=== PATIENT | male | born 1990 | race Caucasian/White ===

== ENCOUNTER 2023-06-05 17:19 | Emergency (ER) | payer OTHER, SELFPAY ==
[2023-06-05 17:30] VITALS: BP 141/87
[2023-06-05 18:18] LABS: % Basophils 0.7 % (0-2); % Eosinophils 1.3 % (0-6); % Immature Granulocytes 0.3 % (0-0.5); % Lymphocytes 27.8 % (20.5-51.1); % Monocytes 6.4 % (1.7-9.3); % Neutrophils 63.5 % (42.2-75.2); Absolute Basophils 0.1 10^3/uL (0-0.2); Absolute Eosinophils 0.1 10^3/uL (0-0.7); Absolute Lymphocytes 2.6 10^3/uL (1.2-3.4); Absolute Monocytes 0.6 10^3/uL (0.1-0.6); Absolute Neutrophils 5.9 10^3/uL (1.4-6.5); Hematocrit 38.7 % (39.0-52.0); Mean Corp Hgb Conc. 36.2 g/dL (33.0-37.0); Mean Corpuscular Hgb 30.3 pg (27.0-31.0); Mean Corpuscular Volume 83.8 fL (80.0-94.0); Mean Platelet Volume 11.3 fL (7.4-10.4); Nucleated Red Blood Cells % 0 % (-); Platelet Count 244 10^3/uL (130-400); Red Blood Cell Count 4.62 10^6/uL (4.70-6.10); Red Cell Dist. Width 13.2 % (11.5-14.5); White Blood Cell Count 9.2 10^3/uL (4.8-10.8)
[2023-06-05 18:42] LABS: ALT (SGPT) 32 U/L (0-50); AST (SGOT) 42 U/L (17-59); Albumin 4.6 g/dl (3.5-5.0); Alkaline Phosphatase 59 U/L (38-126); Blood Urea Nitrogen 17 mg/dl (9-20); Calcium 9.6 mg/dl (8.4-10.2); Carbon Dioxide 25 mmol/L (22-30); Chloride 102 mmol/L (98-107); Glucose 103 mg/dl (70-99); Potassium 3.9 mmol/L (3.5-5.1); Sodium 138 mmol/L (135-145); Total Bilirubin 0.6 mg/dl (0.2-1.3); eGFR > 60.00
--- NOTE | 2023-06-05 18:46 | ED.GENMED ---
History of Present Illness
General
Chief Complaint: Chest Problem
Source: patient
Exam Limitations: none
Time Seen by Provider: 06/05/23 18:45
Nursing documentation reviewed up to this point in time: agreed with
Travel History
Have you had any contact with someone who has COVID-19?: No
Do you have any symptoms of coronavirus? Fever > 100 degrees, chills, cough, shortness of breath, sore throat, loss of taste or smell, muscle aches, or headache?: No
History of Present Illness
History of Present Illness:
pt is a 33 y/o M with no chronic medical problems
here with R sided chest pain since around 430 pm today when he was sitting watching tv
pt says he had played basketball for 2 hours this morning and had no issues
he ate a smoothie as usual for lunch, nothing out of the ordinary
then he started feeling a subtle pressure in his right chest in a small location that seemed to progress from 3/10 dull ache to 5-6/10 where it is currently
he also feels it in his back
no pleuritic component, no sob, no fever, no vomiting, no nausea, no alcohol
he has not had any abodminal pain
no fhx of premature cad
nonsmoker
nothing taken for sypmtoms
sypmtoms are nonexertional and not worse with mvement of his chest wall/trunk or arm
Past History
Past History
ED Past Medical History: Other (Psoriatic arthritis on Humira)
ED Past Surgical History: None
Social History
Tobacco: Non-smoker
Alcohol: None
Family History
Family History: Negative Diabetes, Hypertension or CAD
Review of Systems
Review of Systems
Allergies reviewed?: Yes
All Other Systems: Not applicable
Phy Exam
Physical Exam
Physical Exam:
GENERAL: Alert , in no apparent distress
EYE: pupils equal and reactive
NECK: Supple
ENT: o/p clr, mmm.
CARDIAC: Regular rate and rhythm .
chest wall: slightly tender in 1 spot in between ribs on the right in the mid clavicular line
no rash
LUNGS: Clear breath sounds bilaterally, no acute respiratory distress, no wheezes/rales/rhonchi
ABDOMEN: Soft, without focal tenderness, no r/g, no cvat, normal bowel sounds
NEUROLOGICAL: Alert and oriented, no focal neuro deficits
SKIN: Warm and dry, skin intact.
MUSCULOSKELETAL: No edema, well perfused. neg agustina's sign
PSYCH: Normal and appropriate interaction.
Course
Orders/Labs/Results
Orders:
Orders
06/05/23 17:21
EKG [Electrocardiogram (*1)] Stat
Reason for Study: Chest Pain
EKG- Treatment ONCE
06/05/23 18:09
Cardiac Monitoring- Treatment ONCE
IV Insert/Care/Rem.- Treatment PRN
O2 Therapy [RESP] Urgent
Titrate/Wean O2 to maintain O2 sat greater than (%): 90
Special Instructions: Maintain sats >/=90%
Pulse Ox/spot Check [RESP] Urgent
Quantity: 1
Special Instructions: ON ROOM AIR
06/05/23 18:10
Complete Blood Count/With Diff Urgent
Comprehensive Metabolic Panel Urgent
Lipase Urgent
Comment: ADD ON
Troponin I Urgent
06/05/23 19:15
Add On- LAB Urgent
Tests Added?: lipase
Ketorolac [Toradol] 30 mg IV NOW STA
06/05/23 19:24
D-Dimer Urgent
06/05/23 19:58
CR Chest - 2 Views Urgent
Comment:
Reason For Exam: right sided chest pain
06/05/23 21:30
Electrocardiogram (*1) Urgent
Reason for Study: Chest Pain
06/05/23 21:35
Troponin I Urgent
Abnormal Lab Results
06/05/23
18:10
RBC 4.62 L 10^6/uL
(4.70-6.10)
Hct 38.7 L %
(39.0-52.0)
MPV 11.3 H fL
(7.4-10.4)
Glucose 103 H mg/dl
(70-99)
06/05/23 18:10
06/05/23 18:10
Vital Signs
Initial and Last Documented VS:
Initial Vital Signs
Temp Pulse Resp BP Pulse Ox
98.0 F 75 16 141/87 98
06/05/23 17:30 06/05/23 17:30 06/05/23 17:30 06/05/23 17:30 06/05/23 17:30
Last Documented Vital Signs
Temp Pulse Resp BP Pulse Ox
98.0 F 64 23 132/81 97
06/05/23 17:30 06/05/23 22:30 06/05/23 22:30 06/05/23 22:00 06/05/23 21:30
MDM/Problems Addressed
Differential Diagnosis Includes:
acs, pe, chest wall pain, anxieyt, gerd
MDM/Problems Addressed:
33 y.o M healthy no pmh
here with right sided chest pain that felt like a somewhat achy but sometimes sharp pain today suddenly while watching tv
pt had done a few hours of basketball exercise in the morning bu tdidn't recall injury
there is one spot where if he pushes it, he can reproduce th pain
it feels the same way in his back as well but doesn't rip through to the back
he felt a little lightheaded after this pain began.
he has never had anythign like it
denies nausea, vomiting, diarrhea, rash, fever, painfulb reathing, shortness of breath,
mom had LA > 65
nonsmoker
he has not tried anthing for symptoms
on exam pt had reproducible tenderness to papation between ribs 3/4 region in the mid clavicular line in the right chest
no rash
full rom of chest wall and deep breathing
no tachycardia
no significant hypertension
no radiatin of pain
not exertional
pt seems anxious
turns out a friend of his sisters had cardiac at ag 34
he has 2 nonishcemic ekgs, 2 neg trop, neg d dimer, normal lfts, cxr with narrow mediatstinum and no right sided abnormalities
toradol did not improve his pain much if at all still 07/28
pt recommended to f/u with pcp and cards for persistent sypmtos
d/w dr. donnelly, agreed on discharge for this ptaient at this time.
*Critical Care Note
Total Time (30-74mins, 75-104mins- exclusive of procedures): Not Applicable
ED Attending Note
-
Portions of this chart may have been created with voice recognition software.� Occasional wrong word or��sound alike� substitutions may have occurred due to the inherent limitations of voice recognition software.
Discharge Plan
Departure
Patient Disposition: Home (Routine Discharge)
Date of Disposition: 06/05/23
Time of Disposition: 22:27
Patient with high blood pressure during this ER visit?: No
Condition: Fair
Covid-19: Not Applicable
Discharge Problem:
Chest pain of uncertain etiology
Instructions: Chest Pain PCP Follow Up
Prescriptions:
No Action
albuterol sulfate [ProAir HFA] 90 mcg/actuation Hfa Aerosol Inhaler
1 puff INHALATION Q4HPRN PRN (Reason: shortness of breath) Qty: 8.5 0RF
prednisone 50 mg Tablet
50 mg PO DAILY Qty: 5 0RF
Referrals:
Teresa Dallas MD [Family Provider] - Follow up in 2-3 days
Activity Restrictions/Additional Instructions:
WE ARE NOT SURE THE CAUSE OF YOUR CHEST PAIN
YOU HAD 2 NEGATIVE TROPONIN ENZYMES AND 2 NORMAL EKGS
YOU HAD A NEGATIVE D DIMER RULING OUT A BLOOD CLOT
YOU HAD A NORMAL APPEARING CHEST XRAY
YOU MAY HAVE SOME INFLAMMATION IN THE CHEST WALL, MUSCLES, NERVES, CARTILAGE ETC
TRY MOTRIN 800 MG 2-3 TIMES A DAY WITH FOOD FOR 3 DAYS TO HELP
AVOID HEAVY LIFTING AND PLAYING BASKETBALL/SPORTS AND THE GYM FO RA FEW DAYS
FOLLOW UP WITH YOUR DOCTOR THIS WEEK
RETURN FOR: WORSENING PAIN, PASSING OUT, RASH, VOMITING, FEVER, SHORTNESS OF BREATH OR ANY CONCERNS.
Interventions
Interventions:
*Risk Screen - Suicide Last Done: 06/05/23 19:32
*General Assessment Last Done: 06/05/23 19:32
*Neglect/Abuse Screening Last Done: 06/05/23 19:32
ED- Fall Risk Assessment Last Done: 06/05/23 19:31
*ED COVID-19 Vaccine History Last Done: 06/05/23 17:30
*Nursing Disposition Last Done: 06/05/23 22:38
ED- Cardiac Assessment Last Done: 06/05/23 18:43
ED- Pulmonary Assessment Last Done: 06/05/23 19:31
Discharge Date and Time
Discharge Date/Time: 06/05/23 22:39
[2023-06-05 18:55] LABS: Troponin I < 0.012 ng/ml
[2023-06-05 19:02] VITALS: BP 148/73
[2023-06-05] MEDS: TORADOL 30 MG IV (19:22)
[2023-06-05 19:46] LABS: D-Dimer < 0.27 ug/mlFEU (0.00-0.50)
[2023-06-05 20:00] VITALS: BP 143/80
[2023-06-05 20:14] LABS: Lipase 63 U/L (23-300)
[2023-06-05 21:05] VITALS: BP 136/86
[2023-06-05 22:00] VITALS: BP 132/81
[2023-06-05 22:15] LABS: Troponin I < 0.012 ng/ml
== END 2023-06-05 22:39 | disposition home or self-care (01) ==
LOC: EMR 17:19
PROVIDERS: Emergency Medicine; Physician Assistant; EMERGENCY PHYSICIAN Emergency Medicine; FAMILY PHYSICIAN Internal Medicine
DX: R07.89 Other chest pain (principal); R42 Dizziness and giddiness; L40.50 Arthropathic psoriasis, unspecified
CPT/HCPCS: 99285; 96374; 94760; 71046; 80053; 83690; 84484; 85025; 85379; 93005

== ENCOUNTER 2024-03-30 21:48 | Day surgery (SDC) | payer OTHER, SELFPAY ==
[2024-03-30 12:48] VITALS: BMI 31.0
[2024-03-30 12:50] VITALS: BP 134/81
--- NOTE | 2024-03-30 12:55 | ED.GENMED ---
ED Provider Triage
<Eder Higgins PA-C - Last Filed: 03/30/24 13:00>
-
Patient seen by provider in Triage?: Seen in Triage
33-year-old male presents with progressively worsening right lower quadrant abdominal pain starting about a day and a half ago. He notes loose stool but no nausea or vomiting. The pain is made worse with walking and bumps on the road. Does not
radiate to the flank. No urinary symptoms. No chest pain or shortness of breath
Vital signs are stable through triage but does appear quite uncomfortable. CBC CMP urinalysis ordered. Will order CT scan with IV contrast. Differential could include appendicitis versus renal colic versus constipation versus colitis. No family
history or personal history of inflammatory bowel disease. IV started at triage. Toradol given at triage
Seen by healthcare provider at triage but warrants further assessment
History of Present Illness
<Eder Higgins PA-C - Last Filed: 03/30/24 13:00>
General
Chief Complaint: Abdominal Pain
Time Seen by Provider: 03/30/24 15:25
<Leslye Preciado NP - Last Filed: 03/30/24 20:41>
General
Source: patient
Exam Limitations: none
Nursing documentation reviewed up to this point in time: agreed with
History of Present Illness
History of Present Illness:
Patient to ED with complaint of worsening RLQ abd pain. Pain started 1.5 days ago, periumbilical. Migrated to RLQ. Denies fever/chills. +nausea, no vomiting or diarrhea. Last BM was this AM, reports small at of stool. No prior hisstory of
same. Brought self to ED for eval
Past History
<dEer Higgins PA-C - Last Filed: 03/30/24 13:00>
Past History
ED Past Medical History: Other (Psoriatic arthritis on Humira)
ED Past Surgical History: None
Social History
Tobacco: Non-smoker
Alcohol: None
Family History
Family History: Negative Diabetes, Hypertension or CAD
Review of Systems
<Leslye Preciado NP - Last Filed: 03/30/24 20:41>
Review of Systems
Allergies reviewed?: Yes
All Other Systems: ROS reviewed and negative except as documented in HPI and ROS
Constitutional: Reports no symptoms
EENT: Reports no symptoms
Respiratory: Reports no symptoms
Cardiac: Reports no symptoms
ABD/GI: Reports abdominal pain (RLQ) and nausea
: Reports no symptoms
Musculoskeletal: Reports no symptoms
Skin: Reports no symptoms
Neurological: Reports no symptoms
Psychiatric: Reports no symptoms
Phy Exam
<Leslye Preciado NP - Last Filed: 03/30/24 20:41>
General Physical Exam
General Presentation: moderate distress
General age: appears stated age
General Skin: warm and dry
General Habitus: normal
General Mental: alert
General Hydration: appears well hydrated
Cardiovascular Exam
Cardiovascular Exam: regular rate/rhythm and no edema
Gastrointestinal Exam
Gastrointestinal Exam: normal bowel sounds, no organomegaly, no pulsatile mass, non distended and guarding
Palpation: left upper quadrant: No tenderness, left lower quadrant: No tenderness, right upper quadrant: Mild tenderness and right lower quadrant: Moderate tenderness
Musculoskeletal Exam
Musculoskeletal Exam: full ROM and neuro vasc intact
Skin Exam
Skin Exam: normal color, warm/dry and no rash
Psychiatric Exam
Psychiatric Exam: normal mood/affect
Course
<Eder Higgins PA-C - Last Filed: 03/30/24 13:00>
Orders/Labs/Results
Orders:
Orders
03/30/24 12:53
CT Abd/pelvis W Iv Cont Urgent
Comment:
Reason For Exam: rlq pain
03/30/24 13:00
Ketorolac [Toradol] 15 mg IV NOW STA
03/30/24 13:04
Complete Blood Count/With Diff Urgent
Comprehensive Metabolic Panel Urgent
Urinalysis Reflex To Culture Urgent
Date Specimen was Collected: 03/30/24
Time Specimen was Collected: 12:56
03/30/24 15:32
CT Abd/pel W Iv And Oral Contr Urgent
Comment:
Reason For Exam: RLQ pain.
Iohexol [Omnipaque] See Protocol PO NOW STA
03/30/24 15:40
0.9% Sodium Chloride 1000 ml [Nss] 1,000 ml IV BOLUS
03/30/24 17:40
Ketorolac [Toradol] 15 mg .ROUTE .STK-MED ONE
03/30/24 18:09
Ketorolac [Toradol] 15 mg IV NOW STA
03/30/24 20:26
HYDROmorphone [Dilaudid] 0.5 mg IV NOW STA
Ondansetron Injectable [Zofran] 4 mg IV NOW STA
03/30/24 20:30
0.9% Sodium Chloride 1000 ml [Nss] 1,000 ml IV 125 mls/hr
Piperacillin/Tazo 3.375 Gram [Zosyn] 3.375 gram in 50 ml IV NOW
Abnormal Lab Results
03/30/24
13:04
MPV 11.1 H fL
(7.4-10.4)
Absolute Monos (auto) 0.7 H 10^3/uL
(0.1-0.6)
Total Bilirubin 1.4 H mg/dl
(0.2-1.3)
Albumin 5.2 H g/dl
(3.5-5.0)
03/30/24 13:04
03/30/24 13:04
Vital Signs
Initial and Last Documented VS:
Initial Vital Signs
Temp Pulse Resp BP Pulse Ox
97.9 F 88 18 134/81 100
03/30/24 12:50 03/30/24 12:50 03/30/24 12:50 03/30/24 12:50 03/30/24 12:50
Last Documented Vital Signs
Temp Pulse Resp BP Pulse Ox
97.9 F 77 18 129/75 97
03/30/24 12:50 03/30/24 17:42 03/30/24 17:42 03/30/24 17:42 03/30/24 15:35
<Leslye Preciado NP - Last Filed: 03/30/24 20:41>
Orders/Labs/Results
Orders:
Orders
03/30/24 12:53
CT Abd/pelvis W Iv Cont Urgent
Comment:
Reason For Exam: rlq pain
03/30/24 13:00
Ketorolac [Toradol] 15 mg IV NOW STA
03/30/24 13:04
Complete Blood Count/With Diff Urgent
Comprehensive Metabolic Panel Urgent
Urinalysis Reflex To Culture Urgent
Date Specimen was Collected: 03/30/24
Time Specimen was Collected: 12:56
03/30/24 15:32
CT Abd/pel W Iv And Oral Contr Urgent
Comment:
Reason For Exam: RLQ pain.
Iohexol [Omnipaque] See Protocol PO NOW STA
03/30/24 15:40
0.9% Sodium Chloride 1000 ml [Nss] 1,000 ml IV BOLUS
03/30/24 17:40
Ketorolac [Toradol] 15 mg .ROUTE .STK-MED ONE
03/30/24 18:09
Ketorolac [Toradol] 15 mg IV NOW STA
03/30/24 20:26
HYDROmorphone [Dilaudid] 0.5 mg IV NOW STA
Ondansetron Injectable [Zofran] 4 mg IV NOW STA
03/30/24 20:30
0.9% Sodium Chloride 1000 ml [Nss] 1,000 ml IV 125 mls/hr
Piperacillin/Tazo 3.375 Gram [Zosyn] 3.375 gram in 50 ml IV NOW
Abnormal Lab Results
03/30/24
13:04
MPV 11.1 H fL
(7.4-10.4)
Absolute Monos (auto) 0.7 H 10^3/uL
(0.1-0.6)
Total Bilirubin 1.4 H mg/dl
(0.2-1.3)
Albumin 5.2 H g/dl
(3.5-5.0)
03/30/24 13:04
03/30/24 13:04
Vital Signs
Initial and Last Documented VS:
Initial Vital Signs
Temp Pulse Resp BP Pulse Ox
97.9 F 88 18 134/81 100
03/30/24 12:50 03/30/24 12:50 03/30/24 12:50 03/30/24 12:50 03/30/24 12:50
Last Documented Vital Signs
Temp Pulse Resp BP Pulse Ox
97.9 F 77 18 129/75 97
03/30/24 12:50 03/30/24 17:42 03/30/24 17:42 03/30/24 17:42 03/30/24 15:35
<Leslye Preciado NP - Last Filed: 03/30/24 20:41>
*Radiology
Radiology exam reviewed: radiology read reviewed
*Pulse Oximetry
Patient hypoxic: no
*Critical Care Note
Total Time (30-74mins, 75-104mins- exclusive of procedures): Not Applicable
<Leslye Preciado NP - Last Filed: 03/30/24 20:41>
Update Note
Update Note:
Patient to ED with RLQ abd pain. Periumbilical pain started 1.5 days ago, migrated to RLQ. +nausea, no vomiting or diarrhea. Labs reviewed, no concerning findings. WBC normal. Had IV contrast only CT on arrival. Unfortuneately appendix not
confidently identified. Radiology recommending CT with oral contrast. On exam he is point tender over RLQ, +guarding. WIll repeat CT with contrast as recommended. He remains afebile. No relief with toradol given earlier today. He has declined
further pain meds at this time.
Repeat CT report of acute uncomplicated appendicitis. Patient aware of fidings. Dr. Mendenhall notified. WIll admit to his service. NPO after mn, OR in AM
ED Attending Note
<Eder Higgins PA-C - Last Filed: 03/30/24 13:00>
-
Portions of this chart may have been created with voice recognition software.� Occasional wrong word or��sound alike� substitutions may have occurred due to the inherent limitations of voice recognition software.
Discharge Plan
Departure
Patient Disposition: Admit
Date of Disposition: 03/30/24
Time of Disposition: 20:39
Presentation/result/management discussed w/ accepting MD/DO: Dr. Mendenhall
Patient with high blood pressure during this ER visit?: No
Condition: Fair
Covid-19: Not Applicable
Discharge Problem:
Acute appendicitis, uncomplicated
Prescriptions:
No Action
cholecalciferol (vitamin D3) [Vitamin D3] 125 mcg (5,000 unit) Tablet
125 mcg PO DAILY
omega 1-lqv-oac-fish oil [Fish Oil] 1,000 (120-180) mg Capsule
1 cap PO DAILY
Humira(CF) Pen 40 mg/0.4 mL pen injector kit
40 mg SC Q6W
Patient Comments:
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
Referrals:
NONE,* [Family Provider] -
Interventions
Interventions:
*Risk Screen - Suicide Last Done: 03/30/24 12:50
*General Assessment Last Done: 03/30/24 12:50
*Neglect/Abuse Screening Last Done: 03/30/24 12:50
*ED COVID-19 Vaccine History Last Done: 03/30/24 12:50
QA-Mdvycs-Arrkahnnif Assessment Last Done: 03/30/24 15:35
Discharge Date and Time
Print Language: EGYPTIAN
[2024-03-30] MEDS: TORADOL 15 MG IV ×2 (13:02→18:09)
[2024-03-30 13:19] LABS: % Basophils 0.7 % (0-2); % Eosinophils 2.5 % (0-6); % Immature Granulocytes 0.4 % (0-0.5); % Monocytes 7.4 % (1.7-9.3); Absolute Basophils 0.1 10^3/uL (0-0.2); Absolute Eosinophils 0.2 10^3/uL (0-0.7); Absolute Lymphocytes 3.1 10^3/uL (1.2-3.4); Absolute Monocytes 0.7 10^3/uL (0.1-0.6); Hematocrit 42.8 % (39.0-52.0); Hemoglobin 14.6 g/dL (13.0-18.0); Mean Corp Hgb Conc. 34.1 g/dL (33.0-37.0); Mean Corpuscular Hgb 29.6 pg (27.0-31.0); Mean Corpuscular Volume 86.8 fL (80.0-94.0); Mean Platelet Volume 11.1 fL (7.4-10.4); Nucleated Red Blood Cells % 0 % (-); Platelet Count 251 10^3/uL (130-400); Red Blood Cell Count 4.93 10^6/uL (4.70-6.10); Red Cell Dist. Width 13.2 % (11.5-14.5)
[2024-03-30 13:26] LABS: Urine Albumin Negative (Neg - Trace); Urine Bilirubin Negative (Negative); Urine Character Clear (Clear); Urine Color Yellow; Urine Glucose Negative (Negative); Urine Ketone Negative (Negative); Urine Leukocyte Negative (Negative); Urine Nitrite Negative (Negative); Urine Occult Blood Negative (Negative); Urine Urobilinogen Negative (Neg - 1+); Urine pH 6.5 (5.0-9.0)
[2024-03-30 13:29] LABS: ALT (SGPT) 26 U/L (0-50); AST (SGOT) 32 U/L (17-59); Albumin 5.2 g/dl (3.5-5.0); Alkaline Phosphatase 76 U/L (38-126); Blood Urea Nitrogen 15 mg/dl (9-20); Calcium 9.8 mg/dl (8.4-10.2); Carbon Dioxide 28 mmol/L (22-30); Chloride 99 mmol/L (98-107); Glucose 97 mg/dl (70-99); Potassium 4.3 mmol/L (3.5-5.1); Sodium 138 mmol/L (135-145); Total Bilirubin 1.4 mg/dl (0.2-1.3); Total Protein 7.9 g/dl (6.3-8.2); eGFR > 60.00
[2024-03-30 15:35] VITALS: BP 133/72
[2024-03-30] MEDS: OMNIPAQUE 50 ML PO (15:58)
[2024-03-30] MEDS: NSS 1000 IV ×2 (15:58→21:43)
[2024-03-30 17:42] VITALS: BP 129/75
[2024-03-30] MEDS: ZOFRAN 4 MG IV (20:49)
[2024-03-30] MEDS: DILAUDID 0.5 MG IV (20:49)
[2024-03-30] MEDS: ZOSYN 50 IV (21:05)
--- NOTE | 2024-03-30 21:12 | HPS.HSE ---
Family Physician
-
Family Physician: * NONE
Chief Complaint
-
abd pain x 1.5 days
History of Present Illness
33-year-old male with hx psoriatic arthritis(on humira) presents with progressively worsening right lower quadrant abdominal pain starting about a day and a half ago. Initially pain was diffuse started in umbilical area and then progressively
worsened radiating to RLQ. The pain is made worse with walking and bumps on the road. Does not radiate to the flank. No urinary symptoms. No chest pain or shortness of breath. Denies Nausea or vomiting. + anorexia. Denies feeling fever or
chills. LAst BM 1000 today.
In ED initially Had IV contrast only CT on arrival. Unfortunately appendix not confidently identified. Radiology recommending CT with oral contrast. #2 CT ABD: IMPRESSION: Acute uncomplicated appendicitis.
Medical History
Past Medical History
Past Medical History: Reports Other (psoriatic arthritis (on humira))
Past Surgical History: Reports None
Social History
Tobacco: Non-smoker
Alcohol: Occasional
Drug: None
Personal:
Living: With Family
Employment: Employed
Family History
Family History: Not pertinent
Allergies / Home Medications
Allergies reflects when Allergies were last updated in [employer].
Home Medications with original date entered in [employer]
Allergy/Medication List:
Allergies
Allergy/AdvReac Type Severity Reaction Status Date / Time
No Known Allergies Allergy Verified 03/30/24 12:53
Home Medications
adalimumab 40 mg/0.4 mL subcutaneous pen kit (Humira(CF) Pen) 40 mg SC Q6W 03/30/24
cholecalciferol (vitamin D3) 125 mcg (5,000 unit) tablet (Vitamin D3) 125 mcg PO DAILY 03/30/24
omega 1-jku-sfs-fish oil 1,000 mg (120 mg-180 mg) capsule (Fish Oil) 1 cap PO DAILY 03/30/24
Review of Systems
-
History Source: Patient
A 12 point ROS was completed and negative except as noted: Yes
Constitutional: Reports See HPI
EENT: Reports No Symptoms
Respiratory: Reports No Symptoms
Cardiac: Reports No Symptoms
Abdomen/GI: Reports Abdominal Pain (initially diffuse pain around umbilicus now with radiation to RLQ) and Anorexia; Denies Nausea or Vomiting
: Reports No Symptoms
Musculoskeletal: Reports No Symptoms
Skin: Reports No Symptoms
Neurological: Reports No Symptoms
Endocrine: Reports No Symptoms
Hematologic/Lymphatic: Reports No Symptoms
Psych: Reports No Symptoms
Physical Exam
Vital Signs
Vital Signs
Temp Pulse Resp BP Pulse Ox
97.9 F 77 18 129/75 97
03/30/24 12:50 03/30/24 17:42 03/30/24 17:42 03/30/24 17:42 03/30/24 15:35
Physical Exam
General: Well Developed, Well Nourished, No Apparent Distress, Comfortable (pain improving post dilaudid) and Poor Appetite
HEENT: NormoCephalic, Anicteric, Moist mucous membranes, Atraumatic and Good Dentition
Respiratory: Clear and Non Labored Respirations
Cardiac: S1/S2 and Regular Rhythm
Breast: Deferred by me
GI: Soft and Tender (umbilical to RLQ +guarding RLQ)
Rectal: Deferred by Provider
Genito-urinary: Deferred by me
Musculoskeletal: No Clubbing and No Cyanosis
Skin: Warm and Dry
Neuro: Awake, Alert, Oriented and AO x 3
Hematologic/Lymphatic: No Lymphadenopathy
Psych: Calm
Laboratory Results
-
03/30/24 13:04
03/30/24 13:04
Laboratory Results
Total Bilirubin 1.4 mg/dl (0.2-1.3) H 03/30/24 13:04
AST 32 U/L (17-59) 03/30/24 13:04
ALT 26 U/L (0-50) 03/30/24 13:04
Alkaline Phosphatase 76 U/L (38-126) 03/30/24 13:04
Impression/Plan
-
IMPRESSION:
acute noncomplicated appendicitis
PLAN:
Admit to service of Dr Mendenhall
Med surg obs
#acute uncomplicated appendicitis
-npo after mid for OR tomorrow
-cbc,bmp am
-iv NSS@125
-pain control:tylenol, toradol, dilaudid
-cont zosyn iv
dvt proph: scd for now since OR am
full code
[2024-03-30 23:38] VITALS: BP 145/87
[2024-03-30 23:39] VITALS: BMI 31.5
--- NOTE | 2024-03-30 23:59 | SUR.OPER ---
23:20 pt rec'vd from ER , at the bedside and is staying overnight. Pt aax0, vs WNL, IVF infusing as ordered, pt declining need for pain meds at this time, oriented to unit.
[2024-03-31] VITALS (11 sets, daily range): BP systolic 116–136; BP diastolic 59–88
[2024-03-31] MEDS: ZOSYN 50 IV (04:07)
[2024-03-31] MEDS: NSS 1000 IV (06:01)
[2024-03-31 06:53] LABS: % Basophils 0.7 % (0-2); % Eosinophils 3.7 % (0-6); % Immature Granulocytes 0.3 % (0-0.5); % Lymphocytes 31.4 % (20.5-51.1); % Monocytes 6.4 % (1.7-9.3); % Neutrophils 57.5 % (42.2-75.2); Absolute Basophils 0.1 10^3/uL (0-0.2); Absolute Eosinophils 0.3 10^3/uL (0-0.7); Absolute Lymphocytes 2.4 10^3/uL (1.2-3.4); Absolute Monocytes 0.5 10^3/uL (0.1-0.6); Absolute Neutrophils 4.4 10^3/uL (1.4-6.5); Hematocrit 38.7 % (39.0-52.0); Hemoglobin 13.3 g/dL (13.0-18.0); Mean Corp Hgb Conc. 34.4 g/dL (33.0-37.0); Mean Corpuscular Hgb 30.4 pg (27.0-31.0); Mean Corpuscular Volume 88.6 fL (80.0-94.0); Mean Platelet Volume 11.4 fL (7.4-10.4); Nucleated Red Blood Cells % 0 % (-); Platelet Count 215 10^3/uL (130-400); Red Blood Cell Count 4.37 10^6/uL (4.70-6.10); Red Cell Dist. Width 13.3 % (11.5-14.5); White Blood Cell Count 7.7 10^3/uL (4.8-10.8)
[2024-03-31 07:33] LABS: ALT (SGPT) 19 U/L (0-50); AST (SGOT) 26 U/L (17-59); Albumin 3.9 g/dl (3.5-5.0); Alkaline Phosphatase 66 U/L (38-126); Blood Urea Nitrogen 14 mg/dl (9-20); Carbon Dioxide 28 mmol/L (22-30); Chloride 103 mmol/L (98-107); Estimated Creatinine Clearance > 125 ml/min; Glucose 91 mg/dl (70-99); Potassium 4.4 mmol/L (3.5-5.1); Sodium 138 mmol/L (135-145); Total Bilirubin 1.8 mg/dl (0.2-1.3); Total Protein 6.3 g/dl (6.3-8.2); eGFR > 60.00
--- NOTE | 2024-03-31 09:43 | W.PN.CRS1 ---
Today's Communication / Plan
-
OR today for laparoscopic appendectomy.
Assessment/Plan
-
Acute appendicitis
I reviewed the current findings of the CT scan and discussed the treatment options including nonoperative management with antibiotics versus surgery. Without surgery there is a risk of perforation and recurrence. Risks of surgery include, but are
not limited to, bleeding, infection, adhesions, hernias, fistula, injury to other structures, DVT, and the risks of anesthesia. I also reviewed the typical recovery and functional results. We discussed open versus laparoscopic surgery. All
questions answered and he wishes to proceed with a laparoscopic appendectomy. Arrangements are in progress for the operating room.
Subjective Data
Subjective Data
Date of Service: March 31, 2024
He states his abdominal pain is slightly better but still present. He denies any nausea or vomiting.
Objective Data
-
Vital Signs
Temp Pulse Resp BP Pulse Ox
97.9 F 69 16 116/65 97
03/31/24 07:57 03/31/24 07:57 03/31/24 07:57 03/31/24 07:57 03/31/24 07:57
Intake & Output
03/30/24 03/31/24 04/01/24
06:59 06:59 06:59
Intake Total 1240 / 1240
Balance 1240 / 1240
Intake:
Oral fluids 240 / 240
IV fluids (Total) 1000 / 1000
Other:
Number of approximated LARGE 1
amounts of urine
Lab Results
03/31/24 06:06
03/31/24 06:06
Physical Exam
-
General: No Acute Distress
Abdomen: Soft, Non Distended and Tender (Right lower quadrant with focal guarding)
Extremities: No Edema
Data Reviewed
-
CT Scan: Image Reviewed and Report Reviewed
--- NOTE | 2024-03-31 11:03 | W.IMMPOSTOP ---
Surgical Immed Post Op Note
-
Primary Surgeon: Eder Mendenhall MD
Equipment Operator/Laborer/Supervisor: ANGELA Borges
Pre-op Diagnosis: Acute appendicitis
Post-op Diagnosis: Same
Procedure Performed: Laparoscopic appendectomy
Anesthesia Type: GET
Specimen / Cultures: Appendix
Estimated Blood Loss: 5cc
Complications: None
Operative Findings: Acutely inflamed, nonperforated appendix
--- NOTE | 2024-03-31 11:17 | W.DS.TRANS ---
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
-
Discharge Instructions:
Discharge Diagnosis/Procedures Laparoscopic appendectomy
Diet Regular
Activity No strenuous activity
Additional Activity No heavy lifting (<10lbs for 3 weeks)
Driving Restrictions No driving for 24 hours
Bathing Restrictions OK to Shower
Wound Care the glue will fall off in about 2 weeks
Instructions:
Stand-Alone Forms:
Changes to Home Medications: No
Discharge Medications:
DC Medications w/original date entered in [address]
adalimumab 40 mg/0.4 mL subcutaneous pen kit (Humira(CF) Pen) 40 mg SC Q6W 03/30/24
cholecalciferol (vitamin D3) 125 mcg (5,000 unit) tablet (Vitamin D3) 125 mcg PO DAILY 03/30/24
omega 6-cfi-gpo-fish oil 1,000 mg (120 mg-180 mg) capsule (Fish Oil) 1 cap PO DAILY 03/30/24
oxycodone 5 mg tablet 5 mg PO Q6H PRN Pain #14 tabs 03/31/24
Home Medication Changes
Pending Results: Yes
Additional Pending Results:
pathology
[2024-03-31] MEDS: ZOSYN IV (11:34)
--- NOTE | 2024-03-31 15:23 | PTCARENOTE ---
1240. return from sx, left 0900 3 laps RUQ covered for josé antonio, SHARMIN ETT, family in room. CLD
--- NOTE | 2024-03-31 15:26 | CM ---
IA completed with pts sister at bedside; pt was off floor for appendectomy.
Pt admitted on OBS and letter was left at bedside for pt and asked sister to provide post surgery
Pt lives with his and 2 children. Pt is indep at baseline;working.
Pt will dc to home with no needs identified.
PLAN; dc to home at dc with no needs
== END 2024-03-31 17:55 | disposition home or self-care (01) ==
LOC: SDS 21:48
PROVIDERS: Nurse Practitioner Family; Physician Assistant; ATTENDING PHYSICIAN Surgery; EMERGENCY PHYSICIAN Emergency Medicine
DX: K35.80 Unspecified acute appendicitis (principal); L40.50 Arthropathic psoriasis, unspecified; C7A.8 Other malignant neuroendocrine tumors
CPT/HCPCS: 44970; 88304; 74177; 80053; 81003; 85025; 88341; 88342; 96361; 96365; 96375; 96376; 99284; C1776; G0378; Q9967